=== PATIENT | male | born 1990 | race Caucasian/White ===

== ENCOUNTER 2016-10-28 02:45 | Emergency (ER) | payer OTHER ==
[2016-10-28] MEDS ORDERED: IBUPROFEN 200 MG TAB PO ONE (02:55)
[2016-10-28 02:57] VITALS: BP 124/74; PULSE 74; RESP 16; TEMP 97.9; O2SAT 96
--- NOTE | 2016-10-28 02:58 | EDPHY ---
H & P Stated Complaint: Med clear for retirement-L knee pain HPI/ROS: HPI CHIEF COMPLAINT: Left knee Pain, medical clearance for retirement HISTORY OF PRESENT ILLNESS: This patient 25-year-old male denies any significant medical history does not take any daily medications he presents emergency room in police custody for medical clearance for retirement. Tells me he fractured his patella a long time ago he is unsure exactly how long ago he got arrested tonight and developed left knee pain. Denies new trauma. He states he may have twisted a week ago. He did ambulate well, he has full range of motion , distally neurovascular intact. No other complaints. No swelling or obvious trauma on exam. Past Medical History: No medical history Past Surgical History: surgical history Social History: denies daily use of drugs alcohol tobacco products Family History: Noncontributory ROS REVIEW OF SYSTEMS: A comprehensive 10 point review of systems is otherwise negative aside from elements mentioned in the history of present illness. Exam Constitutional appears well nontoxic,triage nursing summary reviewed, vital signs reviewed, awake/alert. Eyes normal conjunctivae and sclera, EOMI, PERRLA. HENT normal inspection, atraumatic, moist mucus membranes, no epistaxis, neck supple/ no meningismus, no raccoon eyes. Respiratory clear to auscultation bilaterally, normal breath sounds, no respiratory distress, no wheezing. Cardiovascular rate normal, regular rhythm, no murmur, no edema, distal pulses normal. Gastrointestinal soft, non-tender, no rebound, no guarding, normal bowel sounds, no distension, no pulsatile mass. Genitourinary no CVA tenderness. Musculoskeletal full range of motion of the left knee, no crepitus, negative anterior-posterior drawer sign, no swelling, very mild ttp to patella, no midline vertebral tenderness, full range of motion, no calf swelling, no tenderness of extremities, no meningismus, good pulses, neurovascularly intact. Skin pink, warm, & dry, no rash, skin atraumatic. Neurologic awake, alert and oriented x 3, AAOx3, moves all 4 extremities equally, motor intact, sensory intact, CN II-XII intact, normal cerebellar, normal vision, normal speech. Psychiatric normal mood/affect. Heme/Lymph/Immune no lymphadenopathy. Differential Diagnosis: Includes but is not limited to in a particular order knee sprain, knee contusion, bony contusion, arthralgia, old fracture Medical Decision Making: Plan for this patient ibuprofen dose here in emergency room and x-ray of the knee. X-rays unremarkable I will allow him to be discharged medically cleared to retirement. Re-evaluation: ED x-ray left knee four view: Negative for acute traumatic injury specifically no appreciable fracture. 0324: re-evaluation patient patient is resting comfortably no acute distress. X-ray has been reviewed shows no acute fracture. Ibuprofen was given to him in the emergency room. He is resting comfortably. Able to ambulate without difficulty. Medically cleared for retirement. Source: Patient, Police - Personal History Current Tetanus Diphtheria and Acellular Pertussis (TDAP): Yes - Medical/Surgical History Hx Asthma: No Hx Chronic Respiratory Disease: No Hx Diabetes: No Hx Cardiac Disease: No Hx Renal Disease: No Hx Cirrhosis: No Hx Alcoholism: No Hx HIV/AIDS: No Hx Splenectomy or Spleen Trauma: No Other PMH: anxiety - Social History Smoking Status: Current every day smoker Constitutional: Initial Vital Signs Temperature (C) 36.6 C 10/28/16 02:47 Heart Rate 74 10/28/16 02:47 Respiratory Rate 16 10/28/16 02:47 Blood Pressure 124/74 H 10/28/16 02:47 O2 Sat (%) 96 10/28/16 02:47 O2 Delivery Mode Room Air Allergies/Adverse Reactions: acetaminophen [From Percocet] Allergy (Verified 10/28/16 02:46) oxycodone HCl [From Percocet] Allergy (Verified 10/28/16 02:46) Home Medications: Medication Instructions Recorded Xanax 10/28/16 Medical Decision Making - Data Points Medications Given: Discontinued Medications Ibuprofen (Motrin) 400 mg PO EDNOW ONE Stop: 10/28/16 02:56 Last Admin: 10/28/16 03:00 Dose: 400 mg Departure - Departure Disposition: Home, Routine, Self-Care Clinical Impression: Knee sprain Qualifiers: Encounter type: initial encounter Involved ligament of knee: unspecified ligament Laterality: left Qualified Code(s): S83.92XA - Sprain of unspecified site of left knee, initial encounter Condition: Good Instructions: Knee Sprain (ED) Additional Instructions: 1. Please ice your knee and take Motrin if you have pain 2. Your medically cleared for retirement we did not see any evidence of fracture on her x-ray. Referrals: NONE *PRIMARY CARE P,. [Primary Care Provider] - As per Instructions
== END 2016-10-28 03:32 | disposition home or self-care (01) ==
DX: S83.92XA Sprain of unspecified site of left knee, initial encounter (principal); F17.200 Nicotine dependence, unspecified, uncomplicated; X58.XXXA Exposure to other specified factors, initial encounter